=== PATIENT | male | born 1965 | race Caucasian/White ===

== ENCOUNTER 2021-04-23 10:22 | Inpatient (IN) | payer MEDICARE ==
[~2021-04-23] VITALS: Ht 167.6 cm; Wt 74.4 kg
[~2021-04-23 10:22] MED LIST: ALBUTEROL SULFATE HF; ASPIRIN EC81 MG PO; ATORVASTATIN CA80 MG PO; FLUTICASONE-SA1 EAC4; FOLIC ACID1 MG PO; METOPROLOL SUC100 MG PO; PERCOCET 5-3251 EACH PO; ZESTRIL5 MG PO
[2021-04-23] MEDS ORDERED: HABITROL7 MG TOP (11:40)
[2021-04-23 19:36] LABS: BASOPHIL 1.3 % (0-2); EOSINOPHIL 10.8 % (0-5); HCT 36.9 % (42.0-52.0); LYMPHOCYTE 73.7 % (15-48); MCH 30.1 pg (25.0-31.0); MCHC 32.5 g/dL (32.0-36.0); MCV 92.5 fL (78.0-100.0); MONOCYTE 4.7 % (0-12); NEUTROPHIL 9.5 % (41-80); NRBC 0; PLT 104 K/uL (150-400); RBC 3.99 M/uL (4.70-6.00); RDW 13.2 % (11.5-14.0); WBC 2.3 K/uL (4.0-10.5)
[2021-04-23 19:53] LABS: ALBUMIN 3.2 g/dL (3.4-5.0); BILIRUBIN - TOTAL 0.2 mg/dL (0.2-1.0); BUN/CREAT RATIO (CALC) 16.1 RATIO; CREATININE 0.93 mg/dL (0.67-1.17); GLOBULIN (CALCULATION) 3.6 g/dL; POTASSIUM 4.4 mmol/L (3.5-5.1); TOTAL PROTEIN 6.8 g/dL (6.4-8.2)
[2021-04-24 01:50] LABS: BASOPHIL 1.2 % (0-2); HCT 33.6 % (42.0-52.0); HGB 11.1 g/dl (13.2-18.0); LYMPHOCYTE 75.2 % (15-48); MCH 30.2 pg (25.0-31.0); MCV 91.6 fL (78.0-100.0); MONOCYTE 5.3 % (0-12); MPV 10.1 fL (6.0-9.5); NRBC 0; PLT 105 K/uL (150-400); RBC 3.67 M/uL (4.70-6.00); RDW 13.1 % (11.5-14.0); WBC 2.5 K/uL (4.0-10.5)
[2021-04-24 01:52] LABS: NEUTROPHIL 7.3 % (41-80)
[2021-04-24 02:02] LABS: ALBUMIN 2.8 g/dL (3.4-5.0); BILIRUBIN - TOTAL 0.2 mg/dL (0.2-1.0); CREATININE 0.94 mg/dL (0.67-1.17); GLOBULIN (CALCULATION) 3.1 g/dL; POTASSIUM 4.4 mmol/L (3.5-5.1); TOTAL PROTEIN 5.9 g/dL (6.4-8.2)
[2021-04-25 06:11] LABS: BASOPHIL 0.7 % (0-2); EOSINOPHIL 10.4 % (0-5); HCT 39.2 % (42.0-52.0); HGB 12.6 g/dl (13.2-18.0); MCH 30.1 pg (25.0-31.0); MCHC 32.1 g/dL (32.0-36.0); MCV 93.6 fL (78.0-100.0); MONOCYTE 6.3 % (0-12); MPV 10.5 fL (6.0-9.5); NEUTROPHIL 6.3 % (41-80); NRBC 0; PLT 152 K/uL (150-400); RBC 4.19 M/uL (4.70-6.00); RDW 13.2 % (11.5-14.0); WBC 2.7 K/uL (4.0-10.5)
[2021-04-25 06:15] LABS: LYMPHOCYTE 75.9 % (15-48)
[2021-04-28 04:24] LABS: BASOPHIL 1.3 % (0-2); EOSINOPHIL 8.9 % (0-5); HCT 34.2 % (42.0-52.0); HGB 11.2 g/dl (13.2-18.0); MCH 30.2 pg (25.0-31.0); MCHC 32.7 g/dL (32.0-36.0); MCV 92.2 fL (78.0-100.0); MONOCYTE 9.6 % (0-12); NRBC 0; PLT 237 K/uL (150-400); RBC 3.71 M/uL (4.70-6.00); RDW 13.3 % (11.5-14.0)
[2021-04-28 04:26] LABS: LYMPHOCYTE 69.2 % (15-48)
[2021-04-30 11:25] LABS: BASOPHIL 1.7 % (0-2); EOSINOPHIL 6.1 % (0-5); HCT 43.5 % (42.0-52.0); HGB 13.9 g/dl (13.2-18.0); LYMPHOCYTE 40.7 % (15-48); MCH 30.1 pg (25.0-31.0); MCV 94.2 fL (78.0-100.0); MONOCYTE 8.2 % (0-12); MPV 9.9 fL (6.0-9.5); NEUTROPHIL 38.3 % (41-80); NRBC 0; PLT 363 K/uL (150-400); RBC 4.62 M/uL (4.70-6.00); WBC 5.2 K/uL (4.0-10.5)
--- NOTE | 2021-05-04 23:04 | NUR ---
REPORT CALLED TO KANDY ASHFORD RN AT [facility]. EMS CALLED. VENKAT SCHREIBER AWARE OF TRANSFER. PATIENT WILL BE TRANSFERRED TO [facility] ROOM 311.
--- NOTE | 2021-05-05 02:07 | NUR ---
patient d/c via ems in route to [facility].
== END 2021-05-05 02:14 | disposition other institution (70) | DRG 167 ==
LOC: FAS 10:22 → FMS 18:11 → FAS 18:24 → FMS 18:24
PROVIDERS: Allergy & Immunology Allergy; Family Medicine; ADMIT Student in an Organized Health Care Education/Training Program
PROC: 0W9B30Z Drainage of Left Pleural Cavity with Drainage Device, Percutaneous Approach (ICD-10-PCS; 2021-04-23)
PROC: 02HV33Z Insertion of Infusion Device into Superior Vena Cava, Percutaneous Approach (ICD-10-PCS; 2021-04-23)
PROC: B518ZZA Fluoroscopy of Superior Vena Cava, Guidance (ICD-10-PCS; 2021-04-23)
PROC: 0JH60WZ Insertion of Totally Implantable Vascular Access Device into Chest Subcutaneous Tissue and Fascia, Open Approach (ICD-10-PCS; 2021-04-23 11:45)
PROC: 0W9B30Z Drainage of Left Pleural Cavity with Drainage Device, Percutaneous Approach (ICD-10-PCS; principal; 2021-04-30 13:15)
DX: J95.811 Postprocedural pneumothorax (principal); C34.12 Malignant neoplasm of upper lobe, left bronchus or lung; C77.1 Secondary and unspecified malignant neoplasm of intrathoracic lymph nodes; J44.9 Chronic obstructive pulmonary disease, unspecified; E78.00 Pure hypercholesterolemia, unspecified; I10 Essential (primary) hypertension; F10.11 Alcohol abuse, in remission; T81.82XA Emphysema (subcutaneous) resulting from a procedure, initial encounter; D70.1 Agranulocytosis secondary to cancer chemotherapy; T45.1X5A Adverse effect of antineoplastic and immunosuppressive drugs, initial encounter; Z88.6 Allergy status to analgesic agent; Z88.5 Allergy status to narcotic agent; Z91.030 Bee allergy status; Z79.82 Long term (current) use of aspirin; Z79.899 Other long term (current) drug therapy; I25.2 Old myocardial infarction; Z95.5 Presence of coronary angioplasty implant and graft; Z98.890 Other specified postprocedural states; Z82.49 Family history of ischemic heart disease and other diseases of the circulatory system; Z83.3 Family history of diabetes mellitus
CPT/HCPCS: 36415; 71045; 76000; 80053; 84484; 85025; 93005; C1788; J0690; J1170; J1644; J1650; J1885; J2001; J2250; J2405; J2550; J2704; J3010; J7030; J7120

== ENCOUNTER 2021-05-15 12:50 | Day surgery (SDCO) | payer OTHER ==
[~2021-05-15] VITALS: Ht 167.6 cm; Wt 73.6 kg
[~2021-05-15 12:50] MED LIST changes: +HABITROL7 MG TOP
[2021-05-15 14:20] LABS: HCT 41.3 % (42.0-52.0); HGB 13.6 g/dl (13.2-18.0); LYMPHOCYTE 16.2 % (15-48); MCH 30.2 pg (25.0-31.0); MCHC 32.9 g/dL (32.0-36.0); MCV 91.8 fL (78.0-100.0); MPV 10.7 fL (6.0-9.5); NEUTROPHIL 71.3 % (41-80); NRBC 0; PLT 301 K/uL (150-400); RDW 14.5 % (11.5-14.0); WBC 13.2 K/uL (4.0-10.5)
[2021-05-15 14:44] LABS: BUN/CREAT RATIO (CALC) 9.9 RATIO; CREATININE 1.01 mg/dL (0.67-1.17); POTASSIUM 4.2 mmol/L (3.5-5.1)
[2021-05-15] MEDS ORDERED: OXYCODONE HCL10 MG PO (17:53)
[2021-05-16 05:58] LABS: BASOPHIL 1.3 % (0-2); EOSINOPHIL 11.3 % (0-5); HCT 41.5 % (42.0-52.0); HGB 13.4 g/dl (13.2-18.0); LYMPHOCYTE 27.2 % (15-48); MCH 30.2 pg (25.0-31.0); MCHC 32.3 g/dL (32.0-36.0); MCV 93.7 fL (78.0-100.0); MONOCYTE 6.9 % (0-12); MPV 10.8 fL (6.0-9.5); NEUTROPHIL 52.6 % (41-80); NRBC 0; PLT 269 K/uL (150-400); RBC 4.43 M/uL (4.70-6.00); RDW 14.6 % (11.5-14.0); WBC 12.4 K/uL (4.0-10.5)
[2021-05-16 06:19] LABS: BUN/CREAT RATIO (CALC) 13.4 RATIO; CREATININE 0.97 mg/dL (0.67-1.17); MAGNESIUM 1.7 mg/dL (1.8-2.4); POTASSIUM 4.9 mmol/L (3.5-5.1)
== END 2021-05-16 12:16 | disposition home or self-care (01) ==
LOC: FER 12:50 → FMS 15:38
PROVIDERS: Emergency Medicine; ADMIT Internal Medicine
DX: J93.9 Pneumothorax, unspecified (principal); C34.92 Malignant neoplasm of unspecified part of left bronchus or lung; J44.9 Chronic obstructive pulmonary disease, unspecified; I25.10 Atherosclerotic heart disease of native coronary artery without angina pectoris; I10 Essential (primary) hypertension; E78.5 Hyperlipidemia, unspecified; F17.290 Nicotine dependence, other tobacco product, uncomplicated; Z88.5 Allergy status to narcotic agent; Z91.030 Bee allergy status; Z79.82 Long term (current) use of aspirin; Z79.899 Other long term (current) drug therapy; Z20.822 Contact with and (suspected) exposure to COVID-19
CPT/HCPCS: 36415; 71045; 71046; 80048; 83605; 83735; 84145; 85025; 94640; G0378; U0002